=== PATIENT | female | born 1990 | race Caucasian/White ===

== ENCOUNTER 2022-09-28 08:33 | Outpatient (CLI) | payer MEDICAID, SELFPAY ==
--- NOTE | 2022-09-28 08:30 | RT.EKG_ITS ---
APPROVED REPORT Exam: Resting ECG Reason for Exam: Baseline ekg for monitoring - on stimulant med Patient Location: O HR:69 bpm ECG Measurements Heart Rate 69 AXIS AL 110 P 60 QRSd 83 QRS 26 QT 381 T 14 QTc 408 Conclusion Sinus rhythm...normal P axis, V-rate 50- 99 Borderline short AL interval...AL int <120mS
== END 2022-09-28 08:34 | disposition home or self-care (01) ==
LOC: DI.KIM 08:35
PROVIDERS: PCP Nurse Practitioner Family; Visit Provider Nurse Practitioner Family
DX: Z79.899 Other long term (current) drug therapy (principal); R94.31 Abnormal electrocardiogram [ECG] [EKG]
CPT/HCPCS: 93010

== ENCOUNTER 2022-10-31 14:40 | Outpatient (REF) | payer MEDICAID, SELFPAY ==
[2022-11-06 14:33] LABS: Amphetamine 1032 ng/mL (Cutoff: 25); Amphetamines Interpretation Positive.; MDA (Ecstasy Metabolite) Negative ng/mL (Cutoff: 25); MDMA (Ecstasy) Negative ng/mL (Cutoff: 25); Methamphetamine Negative ng/mL (Cutoff: 25); Phentermine Negative ng/mL (Cutoff: 25); Pseudoephedrine/Ephedrine Negative ng/mL (Cutoff: 25)
== END 2022-10-31 14:41 | disposition home or self-care (01) ==
LOC: LBN 14:40
PROVIDERS: PCP Nurse Practitioner Family; Visit Provider Nurse Practitioner Family
DX: F90.8 Attention-deficit hyperactivity disorder, other type; Z79.899 Other long term (current) drug therapy; Z51.81 Encounter for therapeutic drug level monitoring; R82.5 Elevated urine levels of drugs, medicaments and biological substances
CPT/HCPCS: 80324

== ENCOUNTER 2023-02-07 16:40 | Outpatient (REF) | payer OTHER, SELFPAY ==
[2023-02-13 07:43] LABS: Amphetamine 851 ng/mL (Cutoff: 25); Amphetamines Interpretation Positive.; MDA (Ecstasy Metabolite) Negative ng/mL (Cutoff: 25); MDMA (Ecstasy) Negative ng/mL (Cutoff: 25); Methamphetamine Negative ng/mL (Cutoff: 25); Phentermine Negative ng/mL (Cutoff: 25); Pseudoephedrine/Ephedrine Negative ng/mL (Cutoff: 25)
== END 2023-02-07 16:41 | disposition home or self-care (01) ==
LOC: LBO 16:40
PROVIDERS: PCP Nurse Practitioner Family; Visit Provider Nurse Practitioner Family
DX: F41.8 Other specified anxiety disorders (principal); Z79.899 Other long term (current) drug therapy; Z51.81 Encounter for therapeutic drug level monitoring; F90.8 Attention-deficit hyperactivity disorder, other type
CPT/HCPCS: 80324

== ENCOUNTER 2024-04-15 03:21 | Outpatient (CLI) | payer BC, SELFPAY ==
[2024-04-15 11:03] LABS: Calculated LDL 74 mg/dL (<100); Cholesterol 158 mg/dL (<200); HDL Cholesterol 78 mg/dL (40-60); Triglyceride 31 mg/dL (<150)
[2024-04-16 09:47] LABS: Varicella IgG Antibody Positive (See Note)
[2024-04-17 14:23] LABS: TB Interpretation Negative (Negative)
== END 2024-04-15 03:22 | disposition home or self-care (01) ==
LOC: LBO 03:21
PROVIDERS: Nurse Practitioner Family; PCP Nurse Practitioner; Visit Provider Nurse Practitioner
DX: Z02.1 Encounter for pre-employment examination (principal); Z13.220 Encounter for screening for lipoid disorders
CPT/HCPCS: 36415; 80061; 86787; 86480

== ENCOUNTER 2024-06-22 01:52 | Outpatient (CLI) | payer OTHER, SELFPAY ==
--- NOTE | 2024-06-22 06:45 | DI.MAMMO_ITS ---
Exam(s) MAMMO SCREENING EXAM: MAMMO SCREENING CLINICAL HISTORY: screening,MOM WITH BREAST CA,Z12.39,Z80.3. TECHNIQUE: Bilateral full field digital CC and MLO mammographic images were obtained with 3D tomosyn thesis and utilizing computer aided detection (CAD). COMPARISON: None. This is a baseline mammogram on this 34 old patient 2 has significant family hist ory. Apparently both her mother and grandmother had breast cancer FINDINGS: Fibroglandular tissue is moderately dense, this somewhat decreasing the sensitivity of the mammogram for finding hidden underlying lesions. There are no obvious spiculated masses nor malignant appearing microcalcification groups. There is no significant architectural distortion nor skin thickening-retraction. IMPRESSION: Dense bilateral fibroglandular tissue. No obvious radiographic evidence of malignancy. Given the density of this patient's fibroglandular tissue and significant family history I feel would be prudent to perform complete bilateral screening breast ultrasound. BI-RADS Category 0 - Incomplete: Need additional imaging evaluation Breast Density - Category C - Heterogeneously dense Breast density Category C or D implies that the patient has dense breast tissue. Dense breast tissue can make it harder to find cancer on a mammogram. Dense breast tissue is also associated with an incr eased risk of breast cancer. This information about the result of the mammogram report was provided to the patient to raise their awareness. Use this report when you speak with the patient about their risks for breast cancer, which includes their family history. At that time, you may recommend additional screening tests (Ultrasoun d or MRI) as these tests may add significant information. A negative radiographic report should not delay biopsy if a dominant or clinically suspicious mass is present. Up to ten percent of cancers are not identified on mammography. A negative report may reinforce clinical impression. Adenosis and dense breasts may obscure an underlying neoplasm. False positive reports average 6 to 10%. Patient will receive a letter notifying them of these results.
== END 2024-06-22 02:12 ==
PROVIDERS: PCP Nurse Practitioner; Visit Provider Nurse Practitioner
DX: Z12.31 Encounter for screening mammogram for malignant neoplasm of breast (principal); Z80.3 Family history of malignant neoplasm of breast; R92.333 Mammographic heterogeneous density, bilateral breasts
CPT/HCPCS: 77063; 77067

== ENCOUNTER 2024-07-21 18:13 | Emergency (ER) | payer OTHER, SELFPAY ==
[2024-07-21 18:17] VITALS: BP 130/67; PULSE 78; RESP 16; TEMP 36.6; O2SAT 98
--- OUTSIDE RECORDS SUMMARY | 2024-07-21 18:38 | XMS_ITS | Encounter Summary ---
Author Organization [facility] Address [facility] [address] [address] Care Team Providers Care Grain Shipper Name Role Phone Bere Ramos APRN Primary Care Provider [phone] Reason for Visit * Consultation (Routine) - Closed Specialty Diagnoses / Procedures Referred By Antonio t Referred To Contact Rheumatology Diagnoses Undifferentiated connective tissue disease Ting Hoyos APRN [address] [place] [address] [facility] [place], [place] Rheumatology [address] [place] [phone] Referral ID Status Reason Start Date Expiration Date V isits Requested Visits Authorized [id number] Closed Consult, Test & Treat PCP Updated and/or Approved 05/24/2023 05/23/2024 6 6 Encounter Details Date Type Department Care Team (Late st Contact Info) Description 07/03/2023 9:00 AM EST TH Visit (TeleHealth) [place] [phone] Zay Quintero MD [facility] [place] [address] Undifferentiated connective tissue disease; Anxiety and depression; Traumatic brain injury, with unknown loss of consciousness status, initial encounter; ADHD (attention deficit hyperactivity disorder), combined type; Hypermobility syndrome Social History Tobacco Use Types Packs/Day Years Used Date Smoking Tobacco: Never Assessed Sex and Gender Information Value Date Recorded Sex Assigned at Not on file Gender Identity Not on file Sexual Orientation Not on file documented as of this encounter Progress Notes * Zay Quintero MD - 07/03/2023 9:00 AM EST Images from the original note were not included. Rheumatology Clinic: Dr. Quintero 07/03/2023 [id number] Katja Pineda is a 33 y.o. female patient whom we see in consultation for Bere Ramos APRN in evaluation of undifferentiated connective tissue disease. Unfortunately, she has an extensive medical history, mainly at the [facility], but also more recently with rheumatology in [place], [place]. We don't have access to those records and will need to track them down. (Some information was subsequently sent by the patient through the portal; see below.) Apparently this is a recurring problem, i.e., getting her old medical records forwarded to her new providers. So, this note is based solely upon the interview with family today. She recalls having autoimmune problemsfrom a young age. Even before that, she had problems with delayed growth. Some of that she relates to black mold that was present in her grammar school, so called sick school syndrome. In any case,she ultimately began catching up, but developed problems in the seventh grade when she was 13 to 14years old. She had Raynaud's, heartburn, and profound fatigue. She says at one point in time, the co nsideration was between inflammatory bowel disease versus lupus, which would be unusual differential diagnosis. In any case in 2013, she had upper and lower endoscopy. She says there were small ulcers identified in her GI tract. She can't be more specific than that, she was put on omeprazole which was very helpful, suggesting that possibly these were upper GI ulcers. She continues to use that on a as-needed basis for ulcer pain, which she relates to stress and consists of burning, epigastric pain and some reflux symptoms. Importantly, she was never specifically treated for IBD, and in fact cannot recall ever receiving steroids. In the last 5-6 years, she developed chilbains after her second with her daughter in 2017-. This is after having Raynauds most of her life, involving both fingers and toes. She also has chronic widespread body aches, most of that more localized to the joints than muscles, although she has both. She has been diagnosed with EDS-hypermobility type, which certainly contributes to her joint pain. We then went into her history. She first became with her son at age 21 inaround 2011. That delivery went okay. With her daughter in 2019, she developed gestational diabetes, and also had a flare of her connective tissue disease with a difficult rash on face, arms, and legs associated with swelling. She has a picture of that rash (See below.). She had a skin biopsy that was inconclusive. She had significant pain from her ribs down, into her bottom and then her legs, anyplace that got cold. Then after that she developed severe chilblains. She has never hada miscarriage. She went on BCPs at age 18, and that caused the skin on her legs to become bruised and very itchy. So she stopped the BCP and the bruising resolved. After her son was born when she was22, she was put on a different type of BCP, but that caused moodiness. . At the time, she was put on it for severe periods and recurrent symptomatic ovarian cysts. In terms of current control, she is not on anything. Unfortunately, her is allergic to latex, so they cannot even use condoms. So they end up just being very careful about her cycles. On connective tissue disease review of systems, in addition to the Raynaud's and possibly CTD-related skin rashes, she has profound fatigue, musculoskeletal pain all over, but particularly in her shoulders including the hands, shoulder blades, lower back, hips, and feet. Her shoulders are unstable and frequently pop out and become very painful. In fact, she always has pain in her hands, shoulders, and feet. When she flares all of her joints hurt and those particular joints get worse. She alsohas baseline hair loss, oral ulcers, and a tender scalp, plus minus rash. During a flare, she also has intermittent fevers that can last just 4 hours. Her baseline fatigue gets dramatically worse. She has trouble getting out of bed because she feels like concrete, which sounds like a mixture of stiffness, musculoskeletal pain, and (difficulty responding to her brain) telling her to move. She notes that stress is an important trigger. She has worked on her mental health to try and reduce her stress, and therefore her flares, and has had some success in that regard. She has some issues with an xiety and depression and a history of TBI, as well as ADHD that was diagnosed at age 29. Her fatigue has been bad lately, probably related to the fact that she is working 50-70 hrs a week, going to school for an advanced degree, and raising two children. Treatment-cohen, as noted, she was followed by rheumatology in [place] for many years. She was onhydroxychloroquine, okay to stay but stopped that on her own when the COVID-19 pandemic developed because she was concerned that it might be immunosuppressive. The family then moved north to [place], initially at [facility] off of [facility] in [place]. She began seeing a c software developer in [place] 2 years ago. He put her on amlodipine for her Raynaud's and chilblains, and eventually increased that up to 10 mg a day, on which she remains. They were contemplating starting her back on h ydroxychloroquine, but the family had to move. With the pandemic and [facility] [place] [facility] [place] They've moved a total of seven times in 2 years, all related to trying to find affordable housing. In any case, because of the movements, she was unable to then follow-up with the c software developer in [place]. The people at her current work are very understanding and accommodating. In fact, she did this telehealth visit from work. Her helps out a lot. A best friend from [place] has moved nearby and helps as well. Surprisingly, she has never been on prednisone. She notes that there has been an increase in flares this year. Past Medical History: Undifferentiated connective tissue disease. Raynaud's and chilblains. History of multiple rashes. Traumatic brain injury. ADHD diagnosed at age 29. Anxiety/depression. History of gestational diabetes. Family History: Her mom had a history of mixed connective tissue disease and was on prednisone at one time for that. Her mother ultimately from triple negative breast cancer at age 52. Her daughter has what she believes may be Raynaud's. She is trying to emphasize commonsense approachesto that rather than getting her daughter involved in the healthcare system so young in life. 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 She, her , and her two children live and workin [place]. She is also taking online courses in Interdiscplinary Studies through the [employer]. This focuses on child psychology, education, and development. Ultimately, she wants to do child social work. 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 Her children are now 4 and 10 years old. Her works in restaurant management and is very supportive and helpful with her problems. It sounds like there finances can sometimes be challenging. Review of Systems As in HPI. Otherwise, no history of deep venous thrombosis, miscarriages, kidney disease, hematologic problems, BODY AND FENDER WORKER disease other than the TBI. She is not really familiar with her serology workups. Otherwise, the rheumatology, cardiology, pulmonary, GI, , neurology, dermatology, and hematology review of systems is negative or non-contributory. Physical Exam: She is a very healthy-appearing young woman on the video connection. She is in good spirits. Her medical history is complex and includes a lot of information from when she was a child and therefore her recollection of the details is marginal. After the visit she sent the following pictures, undated, which appear to show a malar rash, chilblains with some skin breakdown, an erythemamultiforme rash of the palms, and an unusual thigh rash which was apparently biopsied on 08/12/2018 with non-specific findings and no evidence of LCV or IFD or dermal mucin deposits. Assessment & Plan: We had a long discussion about her situation. The bottom line though is we need much more information about her connective tissue disease history and we will track that down from her providers at [facility] and [place]. She'll continue the amlodipine. My initial inclination is to put her on hydroxychloroquine, but before doing that would like to get more of her rheumatologic history and also a fresh set of labs. Her primary intended for her to have blood work already, but it is fortunate in a way that she hasn't because she says she is a very difficult stick. We'll mail her lab slips and she can have all her labs done in [place] with hopefully just one stick. I asked herto send a message through the portal after she has them done, so we can review the results and decide what to do next. In the meantime, we'll plan on seeing her in follow-up in 3 months, either via TeleHealth or preferably in person here in the clinic. Visit Diagnoses: 1. Undifferentiated connective tissue disease 2. Anxiety and depression 3. Traumatic brain injury, with unknown loss of consciousness status, initial encounter 4. ADHD (attention deficit hyperactivity disorder), combined type 5. Hypermobility syndrome Notes from , previously at [facility], now located in [place]: Notes from Dr. Nils Dodson MD in [place], [place] from 08/11/2021: documented in this encounter Plan of Treatment Scheduled Orders Name Type Priority Associated Diagnoses Orde r Schedule JEANIE Panel Lab Routine Undifferentiated connective tissue disease Expected: 07/03/2023, Expires: 07/02/2024 documented as of this encounter Results * Protein/Creatinine Ratio, urine (09/27/2023 4:35 PM EDT) Creatinine, Urine 90.8 EXTERNAL [facility]ILITY Protein, Urine Dipstick 101 [facility] Protein / Creatinine Ratio, Urine 1.11 [facility]ILITY Urine 09/27/2023 4:35 PM EDT Zay Quintero MD URINE ORDERABLES EXTERNAL FACILITY * (ABNORMAL) Urinalysis with reflex Culture (09/27/2023 4:35 PM EDT) Color, Urine Dipstick Yellow [facility] Appearance, Urine Dipstick Clear [facility]ACILITY Specific [place] Urine Automated 1.025 EX[facility]ACILITY pH, Urn (dipstick) 6.5 [facility]ACILITY Protein, Urine Dipstick 100(H) EX[facility]ACILITY Glucose, Urine Dipstick Negative [facility]ILITY Ketone, Urine Dipstick 40(H) EX[facility]NAL [facility]ACILITY Bilirubin, Urine Dipstick Negative [facility]ILITY Urobilinogen, Urine Dipstick 0.2 [facility]ACILITY Blood, Urine Dipstick Negative [facility]ILITY Leukocytes, Urine Dipstick Negative [facility]ILITY Nitrite, Urine Dipstick Negative [facility]ILITY WBC, Urine 5-10(H) [facility]ILITY RBC, Urine 0-3 [facility]ILITY Bacteria, Urine 2+(H) EXTERNAL [facility]ACILITY Culture Indicated? Yes(H) EXTERNAL FACILITY 09/27/2023 4:35 PM EDT Zay Quintero MD URINE ORDERABLES EXTERNAL FACILITY * Cardiolipin Antibody Screen (09/27/2023 4:21 PM EDT) Label <9 EXTERNAL FACILITY Comment:Cardiolipin IGA Cardiolipin Antibody IgG <9 [facility]TERNAL FACILITY Cardiolipin Antibody IgM <9 [facility]ILITY Blood 09/27/2023 4:21 PM EDT Zay Quintero MD IMMUNOLOGY ORDERA BLES EXTERNAL FACILITY * C4 Complement (09/27/2023 4:21 PM EDT) Complement C4 30 [facility] Blood 09/27/2023 4:21 PM EDT Zay Quintero MD CHEMISTRY ORDERAB LES EXTERNAL FACILITY * C3 Complement (09/27/2023 4:21 PM EDT) Complement C3 125 [facility] Blood 09/27/2023 4:21 PM EDT Zay Quintero MD CHEMISTRY ORDERAB LES EXTERNAL FACILITY * SHELLEY Ab by IFA (09/27/2023 4:21 PM EDT) SHELLEY Negative EXTERNAL FACILITY Blood 09/27/2023 4:21 PM EDT Zay Quintero MD CHEMISTRY ORDERAB LES EXTERNAL FACILITY * Sedimentation rate (09/27/2023 4:21 PM EDT) Sedimentation Rate Automated 7 [facility]TER[facility] FACILITY Blood 09/27/2023 4:21 PM EDT Zay Quintero MD HEMATOLOGY ORDERA BLES Performing Organization Address [facility] Co de Phone Number EXTERNAL FACILITY * (ABNORMAL) CRP, acute inflammation (09/27/2023 4:21 PM EDT) C-Reactive Protein <0.20(L) EXTERNAL FACILITY Blood 09/27/2023 4:21 PM EDT Zay Quintero MD CHEMISTRY ORDERAB LES Performing Organization Address [facility] de Phone Number EXTERNAL FACILITY * (ABNORMAL) Comprehensive metabolic panel (non-fasting) (09/27/2023 4:21 PM EDT) Glucose 126(H) EXTERNAL FACILITY Blood Urea Nitrogen 14 EX[facility]ACILITY Creatinine 0.73 [facility]ACILITY Est Glomerular Filtration Rate 112 EX[facility]ACILITY Sodium 134(L) EXTERNAL FACILITY Potassium 3.6 EXTER[facility] FACILITY Chloride 99 EX[facility] FACILITY Carbon Dioxide 25 EXTER NAL FACILITY Calcium 9.2 EXTERNAL FACILITY Protein, Total 8.3 EXTER NAL FACILITY Albumin 4.9 EXTERNAL FACILITY Bilirubin, Total 0.6 [facility]T [facility] Alkaline Phosphatase 44 [facility]ACILITY Aspartate Aminotransferase 17 [facility]ACILITY Alanine Aminotransferase 15 [facility]ILITY Anion Gap 14 EXTERNAL FACILITY Blood 09/27/2023 4:21 PM EDT Zay Quintero MD CHEMISTRY ORDERAB LES Performing Organization Address [facility] Co de Phone Number EXTERNAL FACILITY * CBC (with Diff) (09/27/2023 4:21 PM EDT) White Blood Cell 6.22 [facility] Red Blood Cell 4.94 EXTER NAL FACILITY Hemoglobin 14.2 EXTERNAL FACILITY Hematocrit 42.2 [facility]NAL [facility]ACILITY Mean Cell Volume 85.4 [facility] Mean Cell Hemoglobin 28.7 EX[facility]ACILITY Mean Cell Hemoglobin Concentration 33.6 EXTERNAL FACILITY RDW coefficient of variation 13.2 EX[facility]ACILITY Platelet 389 [facility] Mean Platelet Volume 9.5 [facility]ACILITY Neutrophil % 76.5 EXTERNA L FACILITY Lymph % 16.9 [facility]ACILITY Monocyte % 5.5 EXTERNAL FACILITY Eosinophil Manual 0.3 EX TERNAL FACILITY Basophil % 0.6 EXTERNAL FACILITY Immature Gran % 0.2 EXTE [facility]ACILITY Neutrophil Absolute (ANC) - Automated 4.76 EXTERNAL FACILITY Lymph Absolute Manual 1.05 EXTERNAL FACILITY Monocyte Abs 0.34 EXTERNA L FACILITY Eos Absolute Manual 0.02 EXTERNAL FACILITY Baso Absolute Manual 0.04 EXTERNAL FACILITY Immature Gran Absolute 0.01 EXTERNAL FACILITY Blood 09/27/2023 4:21 PM EDT Zay Quintero MD HEMATOLOGY ORDERA BLES EXTERNAL FACILITY documented in this encounter Visit Diagnoses Diagnosis Undifferentiated connective tissue disease Unspecified diffuse connective tissue disease Anxiety and depression Dysthymic disorder Traumatic brain injury, with unknown loss of consciousness status, initial encounter ADHD (attention deficit hyperactivity disorder), combined type Attention deficit disorder with hyperactivity Hypermobility syndrome documented in this encounter Care Teams Grain Shipper Relationship Specialty Start Date End Date Bere Ramos APRN [address] [place] [phone] PCP - General Family Medicine 05/24/23 documented as of this encounter
--- OUTSIDE RECORDS SUMMARY | 2024-07-21 18:38 | XMS_ITS | Encounter Summary ---
Author Organization [facility] Address [address] [place] [address] Care Team Providers Care Professor Of History Name Role Phone Unavailable Primary Care Provider Unavailabl e Reason for Referral * (Routine/Next Available) - Receiving Office to Obtain Authorization Specialty Diagnoses / Procedures Referred By Antonio t Referred To Contact Procedures MA OUTSIDE IMAGES MAMMO SCREENING Imaging, External Referral ID Status Reason Start Date Expiration Date Visits Requested Visits Authorized [id number] Receiving Office to Obtain Authorization 07/17/2024 1 1 Reason for Visit * (Routine/Next Available) - Receiving Office to Obtain Authorization Specialty Diagnoses / Procedures Referred By Antonio thompson Referred To Contact Procedures MA OUTSIDE IMAGES MAMMO SCREENING Imaging, External Referral ID Status Reason Start Date Expiration Date Visits Requested Visits Authorized [id number] Receiving Office to Obtain Authorization 07/17/2024 1 1 Encounter Details Date Type Department Care Team (Latest Contact Info) Description 06/22/2024 - 06/22/2024 23:59 EST Hospital Encounter [facility] Secondary Reads [place] Discharge Disposition: Home or Self Care Social History Tobacco Use Types Packs/Day Years Used Date Smoking Tobacco: Never Assessed Comments Unknown Sex and Gender Information Value Date Recorded Sex Assigned at Not on file Legal Sex Female 13:02 EDT Gender Identity Not on file Sexual Orientation Not on file documented as of this encounter Discharge Disposition Disposition Code Departure Means Destination Home or Self Care documented in this encounter Plan of Treatment Not on file documented as of this encounter Procedures Procedure Name Priority Date/Time Associated Diagnosis Comments MA OUTSIDE IMAGES MAMMO SCREENING Routine 06/22/2024 10:43 EST documented in this encounter Results * MA OUTSIDE IMAGES MAMMO SCREENING (06/22/2024 10:43 EST) Narrative 07/17/2024 10:44 EST This is a non-reportable exam. us External Imaging IMG OTHER IMAGING ORDERABLES Fi nal Result documented in this encounter Visit Diagnoses Not on filedocumented in this encounter
--- OUTSIDE RECORDS SUMMARY | 2024-07-21 18:38 | XMS_ITS | Encounter Summary ---
Author Organization [facility] Address [address] [place] [address] Care Team Providers Care Hand Stone Polisher Name Role Phone Unavailable Primary Care Provider Unavailabl e Encounter Details Date Type Department Care Team (Late st Contact Info) Description 04/16/2024 Lab Requisition [facility] Pathology & Laboratory Medicine - [facility] [address] [place] [address] Outr Resulting Lab, Provider Social History Tobacco Use Types Packs/Day Years Used Date Smoking Tobacco: Never Assessed Comments Unknown Sex and Gender Information Value Date Recorded Sex Assigned at Not on file Legal Sex Female 13:02 EDT Gender Identity Not on file Sexual Orientation Not on file documented as of this encounter Plan of Treatment Not on file documented as of this encounter Procedures Procedure Name Priority Date/Time Associated Diagnosis Comments QUANTIFERON MITOGEN (PERFORMABLE) Today 04/15/2024 10:25 EDT QUANTIFERON TB2 (PERFORMABLE) Today 04/15/2024 10:25 EDT QUANTIFERON TB1 (PERFORMABLE) Today 04/15/2024 10:25 EDT QUANTIFERON NIL (PERFORMABLE) Today 04/15/2024 10:25 EDT QUANTIFERON INTERPRETATION (PERFORMABLE) Today 04/15/2024 10:25 EDT QUANTIFERON TB GOLD PLUS Routine 04/15/2024 10:25 EDT documented in this encounter Results * QUANTIFERON INTERPRETATION (PERFORMABLE) (04/15/2024 10:25 EDT) Quantiferon Interpretation Negative Negative 04/17/2024 14:19 EDT [facility] Comment:No interferon-gamma response to M. tuberculosis antigens was detected. ??Infection with M. tuberculosis is unlikely. A single negative result does not exclude infection with M. tuberculosis. ??In patients at high risk for M. tuberculosis infection, a second test should be considered. TB1 Ag minus Nil 0.00 IU/mL 04/17/20 14:19 EDT [facility] TB2 Ag minus Nil 0.00 IU/mL 04/17/20 14:19 EDT [facility] Blood VENOUS BLOOD / Unknown 04/15/2024 10:25 EDT 04/17/2024 12:54 EDT us Provider Outr Resulting Lab IMMUNOLOGY AND SEROL OGY ORDERABLES Final Result Performing Organization Address City/[facility]/ZIP Co de Phone Number [facility] [address] [place] [phone] * QUANTIFERON MITOGEN (PERFORMABLE) (04/15/2024 10:25 EDT) Blood VENOUS BLOOD / Unknown 04/15/2024 10:25 EDT 04/16/2024 19:44 EDT us Provider Outr Resulting Lab IMMUNOLOGY AND SEROL OGY ORDERABLES Final Result Performing Organization Address City/[facility] Co de Phone Number [facility] [address] [place] [address] * QUANTIFERON TB2 (PERFORMABLE) (04/15/2024 10:25 EDT) Blood VENOUS BLOOD / Unknown 04/15/2024 10:25 EDT 04/16/2024 19:44 EDT us Provider Outr Resulting Lab IMMUNOLOGY AND SEROL OGY ORDERABLES Final Result Performing Organization Address City/[facility]/ZIP Co de Phone Number [facility] [address] [place] [address] * QUANTIFERON TB1 (PERFORMABLE) (04/15/2024 10:25 EDT) Blood VENOUS BLOOD / Unknown 04/15/2024 10:25 EDT 04/16/2024 19:44 EDT us Provider Outr Resulting Lab IMMUNOLOGY AND SEROL OGY ORDERABLES Final Result [facility] [address] [place] [address] * QUANTIFERON NIL (PERFORMABLE) (04/15/2024 10:25 EDT) Blood VENOUS BLOOD / Unknown 04/15/2024 10:25 EDT 04/16/2024 19:44 EDT us Provider Outr Resulting Lab IMMUNOLOGY AND SEROL OGY ORDERABLES Final Result [facility] [address] [place] [address] documented in this encounter Visit Diagnoses Not on filedocumented in this encounter
--- OUTSIDE RECORDS SUMMARY | 2024-07-21 18:38 | XMS_ITS | Clinical Summary ---
Author Organization [facility] [place] [address] Care Team Providers Care Financial Legal Assistant Name Role Phone Bere Ramos APRN Primary Care Provider [phone] Allergies No known active allergies Medications Medication Sig Dispensed Refills Start Date End Date Status hydrOXYzine (Atarax) 25 mg tablet Take 25 mg by mouth 3 times daily as needed for Itching. Active amLODIPine (Norvasc) 10 mg tablet Take 10 mg by mouth daily. 03/24/2024 Active dextroamphetamine-a mphetamine (Adderall XR) 15 mg ER 24 hr capsule Take 15 mg by mouth every morning. 02/25/2024 Active dextroamphetamine-a mphetamine (Adderall) 10 mg tablet Take 10 mg by mouth daily. 02/25/2024 Active escitalopram (Lexapro) 10 mg tablet Take 10 mg by mouth daily. 01/25/2024 Active celecoxib (CeleBREX) 200 mg capsuleIndications: Hypermobility syndrome,Undifferen tiated connective tissue disease Take 1 capsule by mouth daily. 90 capsule 3 03/25/2024 Active predniSONE (Deltasone) 5 mg tablet Do prednisone (32 tablets of 5 mg each) taper as follows: 4 tabs po x 3 days, 3 tabs po x 3 days, 2 tabs po x 3 days, 1 tab po x 3 days, 1/2 tab po x 4 days, then stop. 32 tablet 1 05/24/2024 Active Active Problems Problem Noted Date Diagnosed Date Undifferentiated connective tissue disease 07/04 TBI (traumatic brain injury) 07/04/2023 Hypermobility syndrome 07/04/2023 ADHD (attention deficit hype ractivity disorder), combined type 07/04/2023 Encounters Date Type Department Care Team Description 05/24/2024 Orders [place] [address] Zay Quintero MD from Last 3 Months Social History Tobacco Use Types Packs/Day Years Used Date Smoking Tobacco: Former Cigarettes Smokeless Tobacco: Never Tobacco Cessation:Counseling Given: Not Answered Sex and Gender Information Value Date Recorded Sex Assigned at Not on file Gender Identity Not on file Sexual Orientation Not on file Last Filed Vital Signs Vital Sign Reading Time Taken Comments Blood Pressure 127/81 03/25/2024 11:02 AM EDT Pulse 77 03/25/2024 11:02 AM EDT Temperature 36.4 ??C (97.5 ??F) 03/25/2024 11:02 AM E DT Respiratory Rate 18 03/25/2024 11:02 AM EDT Oxygen Saturation 100% 03/25/2024 11:02 AM EDT Inhaled Oxygen Concentration - - Weight 55.3 kg (122 lb) 03/25/2024 11:02 AM EDT Height 159.4 cm (5' 2.75) 03/25/2024 11:02 AM E DT Body Mass Index 21.78 03/25/2024 11:02 AM EDT Plan of Treatment Health Maintenance Due Date Last Done Comments HIV screen 2009 Hepatitis C Screening 2009 Hepatitis B vaccine (0-59 yrs) (1) 2010 Tetanus/Diphtheria/Pertussis Vaccines (1 - Tdap) 02/18 HPV test 2021 PAP Smear 2021 Covid-19 Vaccine (1 - season) 2024 Influenza (Flu) vaccine (1 o f 1 - Influenza standard series) 02/23/2024 Care Teams Financial Legal Assistant Relationship Specialty Start Date End Date Bere Ramos, TERRITORY SALES PROFESSIONAL [address] [place] [address] [address] [place] [phone] PCP - General Family Medicine 05/24/23
--- OUTSIDE RECORDS SUMMARY | 2024-07-21 18:38 | XMS_ITS | Encounter Summary ---
Author Organization [facility] Address [facility] [place] [address] Care Team Providers Care Blasting Machine Operator Name Role Phone Richard Bere Gan APRN Primary Care Provider [phone] Encounter Details Date Type Department Care Team (Late st Contact Info) Description 07/03/2023 Telephone [place] [phone] Aimee Walton RN Social History Tobacco Use Types Packs/Day Years Used Date Smoking Tobacco: Never Assessed Sex and Gender Information Value Date Recorded Sex Assigned at Not on file Gender Identity Not on file Sexual Orientation Not on file documented as of this encounter Miscellaneous Notes * Telephone Encounter - Aimee Walton RN - 07/03/2023 12:38 PM EST Copied from [facility] #[id number]. Topic: Specialty Dept CRMs - Generic Call >> Jul 03, 2023 10:41 AM Keerthi Martinez wrote: SelfSpecialist: Ingrid Relationship (if other than patient-full name): Self Reason for Call: Patient was advised to upload picture via [facility] to Dr. Quintero, however they do not have the [facility] to send a message at this time. Patient asked if Dr. Myers or a clinical staff member could send her message first so patient could replay with the photos requested. ++++++++++++++++++++++++++++++++++++++++++++++++++++++++++++++++++++++++++++++++ ++++++++++++++++++++ I have sent Katja a message. documented in this encounter Plan of Treatment Not on file documented as of this encounter Visit Diagnoses Not on filedocumented in this encounter Care Teams Blasting Machine Operator Relationship Specialty Start Date End Date Bere Ramos APRN [address] [place] [phone] PCP - General Family Medicine 05/24/23 documented as of this encounter
--- OUTSIDE RECORDS SUMMARY | 2024-07-21 18:38 | XMS_ITS | Encounter Summary ---
Author Organization [facility] [place] [address] Care Team Providers Care Engine Specialist Name Role Phone Bere Ramos APRN Primary Care Provider [phone] Encounter Details Date Type Department Care Team (Latest Contact Info) Description 10/24/2023 External Results [facility] [address] [place] [address] Provider, His Sukumar MD None Undifferentiated connective tissue disease Social History Tobacco Use Types Packs/Day Years Used Date Smoking Tobacco: Never Assessed Sex and Gender Information Value Date Recorded Sex Assigned at Not on file Gender Identity Not on file Sexual Orientation Not on file documented as of this encounter Plan of Treatment Not on file documented as of this encounter Procedures Procedure Name Priority Date/Time Associated Diagnosis Comments PROTEIN/CREATININE RATIO, URINE Routine 09/27/2023 4:35 PM EDT Undifferentiated connective tissue disease URINALYSIS WITH REFLEX CULTURE Routine 09/27/2023 4:35 PM EDT Undifferentiated connective tissue disease SHELLEY AB BY IFA Routine 09/27/2023 4:21 PM EDT Undifferentiated connective tissue disease MISC EXTERNAL LAB PANEL Routine 09/27/2023 4:21 PM EDT CRP, ACUTE INFLAMMATION Routine 09/27/2023 4:21 PM EDT Undifferentiated connective tissue disease DNA ANTIBODY (DOUBLE-STRANDED) Routine 09/27/2023 4:21 PM EDT SM (JAVIER) AB Routine 09/27/2023 4:21 PM EDT CARDIOLIPIN ANTIBODY SCREEN Routine 09/27/2023 4:21 PM EDT Undifferentiated connective tissue disease SEDIMENTATION RATE Routine 09/27/2023 4: 21 PM EDT Undifferentiated connective tissue disease CBC (WITH DIFF) Routine 09/27/2023 4:21 PM EDT Undifferentiated connective tissue disease C3 COMPLEMENT Routine 09/27/2023 4:21 PM EDT Undifferentiated connective tissue disease C4 COMPLEMENT Routine 09/27/2023 4:21 PM EDT Undifferentiated connective tissue disease COMPREHENSIVE METABOLIC PANEL Routine 09/27/2023 4:21 PM EDT Undifferentiated connective tissue disease URINE CULTURE Routine 09/27/2023 documented in this encounter Results * Protein/Creatinine Ratio, urine [...] Appearance, Urine Dipstick Clear EXTERNAL FACILITY Specific [place] Urine Automated 1.025 EXTERNAL FACILITY pH, Urn [...] PM EDT Zay Quintero MD URINE ORDERABLES Performing Organization Address [facility] Co de Phone Number EXTERNAL FACILITY * Misc External Lab Panel (09/27/2023 4:21 PM EDT) Label <0.2 EXTERNAL FACILITY Comment:DENTURE LABORATORY TECHNICIAN Antibodies 09/27/2023 4:21 PM EDT Zay Quintero MD POINT OF CARE CHELLY T ORDERABLES Performing Organization Address [facility] Co de Phone Number EXTERNAL FACILITY * SM (Javier) AB (09/27/2023 4:21 PM EDT) Sm (Javier) Ab <0.2 GOURMET COFFEE ATTENDANT AL FACILITY Blood 09/27/2023 4:21 PM EDT Zay Quintero MD LAB SEND OUT ORDE RABLES Performing Organization Address [facility] Co de Phone Number EXTERNAL FACILITY * DNA Antibody (Double-Stranded) (09/27/2023 4:21 PM EDT) DNA Ab (DS) 1 EXTERNAL FACILITY Blood 09/27/2023 4:21 PM EDT Zay Quintero MD LAB SEND OUT ORDE RABLES Performing Organization Address [facility] Co de Phone Number EXTERNAL FACILITY * SHELLEY Ab by IFA (09/27/2023 4:21 PM EDT) SHELLEY Negative EXTERNAL FACILITY Blood 09/27/2023 4:21 PM EDT Zay Quintero MD CHEMISTRY ORDERAB LES Performing Organization Address [facility]/ZIP Co de Phone Number EXTERNAL FACILITY * Sedimentation rate (09/27/2023 4:21 PM EDT) Sedimentation Rate Automated 7 EXTERNAL FACILITY Blood 09/27/2023 4:21 PM EDT Zay Quintero MD HEMATOLOGY ORDERA BLES Performing Organization Address [facility] Co de Phone Number EXTERNAL FACILITY * Cardiolipin Antibody Screen (09/27/2023 4:21 PM EDT) Label <9 EXTERNAL FACILITY Comment:Cardiolipin IGA Cardiolipin Antibody IgG <9 EXTERNAL FACILITY Cardiolipin Antibody IgM <9 EXTERNAL FACILITY Blood 09/27/2023 4:21 PM EDT Zay Quintero MD IMMUNOLOGY ORDERA BLES Performing Organization Address [facility] Co de Phone Number EXTERNAL FACILITY * C4 Complement (09/27/2023 4:21 PM EDT) Complement C4 30 GOURMET COFFEE ATTENDANT AL FACILITY Blood 09/27/2023 4:21 PM EDT Zay Quintero MD CHEMISTRY ORDERAB LES Performing Organization Address [facility] Co de Phone Number EXTERNAL FACILITY * C3 Complement (09/27/2023 4:21 PM EDT) Complement C3 125 GOURMET COFFEE ATTENDANT AL FACILITY Blood 09/27/2023 4:21 PM EDT Zay Quintero MD CHEMISTRY ORDERAB LES Performing Organization Address [facility] Co de Phone Number EXTERNAL FACILITY * (ABNORMAL) CRP, acute inflammation (09/27/2023 4:21 PM EDT) C-Reactive Protein <0.20(L) EXTERNAL FACILITY Blood 09/27/2023 4:21 PM EDT Zay Quintero MD CHEMISTRY ORDERAB LES EXTERNAL FACILITY * (ABNORMAL) Comprehensive metabolic panel [...] 4.9 EXTERNAL FACILITY Bilirubin, Total 0.6 [facility] Alkaline Phosphatase 44 EXTERNAL FACILITY Aspartate Aminotransferase 17 EXTERNAL FACILITY Alanine Aminotransferase 15 EXTERNAL FACILITY Anion Gap 14 EXTERNAL FACILITY Blood 09/27/2023 4:21 PM EDT Zay Quintero MD CHEMISTRY ORDERAB LES Performing Organization Address City/[facility] Co de Phone Number EXTERNAL FACILITY * [...] Quintero MD HEMATOLOGY ORDERA BLES EXTERNAL FACILITY * Urine culture (09/27/2023) Urine Culture Mixed Growth. Suggestive of contamination. EXTERNAL FACILITY 09/27/2023 Zay Quintero MD MICROBIOLOGY - GE NERAL ORDERABLES EXTERNAL FACILITY documented in this encounter Visit Diagnoses Diagnosis Undifferentiated connective tissue disease Unspecified diffuse connective tissue disease documented in this encounter Care Teams Engine Specialist Relationship Specialty Start Date End Date Bere Ramos, CNC MAINTENANCE TECHNICIAN [address] [place] [address] [phone] PCP - General Family Medicine 05/24/23 documented as of this encounter
--- OUTSIDE RECORDS SUMMARY | 2024-07-21 18:38 | XMS_ITS | Encounter Summary ---
Author Organization [facility] Address [facility] [address] [place] [address] Care Team Providers Care Rehab Manager Name Role Phone Bere Ramos APRN Primary Care Provider [phone] Encounter Details Date Type Department Care Team (Late st Contact Info) Description 05/24/2024 Orders [place] [address] Zay Quintero MD [facility] [place] [address] Social History Tobacco Use Types Packs/Day Years Used Date Smoking Tobacco: Former Cigarettes Smokeless Tobacco: Never Sex and Gender Information Value Date Recorded Sex Assigned at Not on file Gender Identity Not on file Sexual Orientation Not on file documented as of this encounter Plan of Treatment Not on file documented as of this encounter Visit Diagnoses Not on filedocumented in this encounter Care Teams Rehab Manager Relationship Specialty Start Date End Date Bere Ramos APRN [address] [place] [phone] PCP - General Family Medicine 05/24/23 documented as of this encounter
--- OUTSIDE RECORDS SUMMARY | 2024-07-21 18:38 | XMS_ITS | Referral Summary ---
Author Organization [facility] Address [address] [place] [address] Care Team Providers Care Betting Agency Manager Name Role Phone Unavailable Primary Care Provider Unavailabl e Encounters Date Type Department Care Team Description 06/22/2024 - 06/22/2024 23:59 EST Hospital Encounter [facility] [place] Discharge Disposition: Home or Self Care from Last 3 Months Social History Tobacco Use Types Packs/Day Years Used Date Smoking Tobacco: Never Assessed Comments Unknown Sex and Gender Information Value Date Recorded Sex Assigned at Not on file Legal Sex Female 13:02 EDT Gender Identity Not on file Sexual Orientation Not on file Plan of Treatment Not on file Procedures Procedure Name Priority Date/Time Associated Diagnosis Comments MA OUTSIDE IMAGES MAMMO SCREENING Routine 06/22/2024 10:43 EST from Last 3 Months Results * MA OUTSIDE IMAGES MAMMO SCREENING (06/22/2024 10:43 EST) Narrative 07/17/2024 10:44 EST This is a non-reportable exam. us External Imaging IMG OTHER IMAGING ORDERABLES Fi nal Result from Last 3 Months
--- OUTSIDE RECORDS SUMMARY | 2024-07-21 18:38 | XMS_ITS | Clinical Summary ---
Author Organization [facility] Address [address] [place] [address] Care Team Providers Care Terrazzo Worker Apprentice Name Role Phone Unavailable Primary Care Provider Unavailabl e Encounters Date Type Department Care Team Description 06/22/2024 - 06/22/2024 23:59 EST Hospital Encounter [facility] [place] Discharge Disposition: Home or Self Care from Last 3 Months Social History Tobacco Use Types Packs/Day Years Used Date Smoking Tobacco: Never Assessed Comments Unknown Sex and Gender Information Value Date Recorded Sex Assigned at Not on file Legal Sex Female 13:02 EDT Gender Identity Not on file Sexual Orientation Not on file Plan of Treatment Health Maintenance Due Date Last Done Comments Hepatitis C Screen 1991 Hepatitis B Vaccine (1 of 3 - 19+ 3-dose series) 02/18 COVID-19 Vaccine ( season) 2024 Procedures Procedure Name Priority Date/Time Associated Diagnosis Comments MA OUTSIDE IMAGES MAMMO SCREENING Routine 06/22/2024 10:43 EST from Last 3 Months Results * MA OUTSIDE IMAGES MAMMO SCREENING (06/22/2024 10:43 EST) Narrative 07/17/2024 10:44 EST This is a non-reportable exam. us External Imaging IMG OTHER IMAGING ORDERABLES Fi nal Result from Last 3 Months
--- OUTSIDE RECORDS SUMMARY | 2024-07-21 18:38 | XMS_ITS | Encounter Summary ---
Author Organization [facility] [place] [address] Care Team Providers Care Civil Service Worker Name Role Phone Bere Ramos APRN Primary Care Provider [phone] Reason for Visit * Reason Onset Date Comments Prior Authorization 03/27/2024 Encounter Details Date Type Department Care Team (Late st Contact Info) Description 03/27/2024 Telephone [place] [phone] Mary Jo Alejandra Prior Authorization Social History Tobacco Use Types Packs/Day Years Used Date Smoking Tobacco: Former Cigarettes Smokeless Tobacco: Never Sex and Gender Information Value Date Recorded Sex Assigned at Not on file Gender Identity Not on file Sexual Orientation Not on file documented as of this encounter Miscellaneous Notes * Telephone Encounter - Mary Jo Alejandra - 04/02/2024 11:17 AM EDT PA Outcome: PA Approval Medication Prior Authorization Approval Approved: Celecoxib 200mg Start Date: 04/02/24 End Date: 04/02/25 Case/Reference #: [id number] Approval Letter will be scanned into media once received. * Telephone Encounter - Mary Jo Alejandra - 04/02/2024 10:21 AM EDT Images from the original note were not included. PA Outcome: PA Denial [place] [address] DENIED: Celecoxib 200mg Case/Reference #: [id number] Additional Information from Insurance: * Telephone Encounter - Mary Jo Alejandra - 03/27/2024 8:08 AM EDT Medication Prior Authorization Quintero Medication name/dose/directions: Celecoxib 200mg - take one daily Rationale for request: Hypermobility syndrome (M35.7) Undifferentiated connective tissue disease (M35.9) Health plan: [facility]) [place]: [id number] Authorizing community representative name: Anay Sent to health plan on: 03/27/24 documented in this encounter Plan of Treatment Not on file documented as of this encounter Visit Diagnoses Not on filedocumented in this encounter Care Teams Civil Service Worker Relationship Specialty Start Date End Date Bere Ramos APRN [address] [place] [phone] PCP - General Family Medicine 05/24/23 documented as of this encounter
--- OUTSIDE RECORDS SUMMARY | 2024-07-21 18:38 | XMS_ITS | Encounter Summary ---
[place] [address] Care Team Providers Care Fellmongery Worker Name Role Phone Bere Ramos APRN Primary Care Provider [phone] Reason for Referral * Consultation (Routine) - Closed Specialty Diagnoses / Procedures Referred By Antonio t Referred To Contact Rheumatology Diagnoses Undifferentiated connective tissue disease Ting Hoyos APRN [address] [place] [address] [facility] [address] [place] [phone] Referral ID Status Reason Start Date Expiration Date V isits Requested Visits Authorized [id number] Closed Consult, Test & Treat PCP Updated and/or Approved 05/24/2023 05/23/2024 6 6 Encounter Details Date Type Department Care Team (Latest Contact Info) Description 05/24/2023 Transcribe Orders eD Incoming Referrals [phone] Ting Hoyos SUPERVISOR DOG LICENSE OFFICER [address], [place] [phone] Undifferentiated connective tissue disease Social History Tobacco Use Types Packs/Day Years Used Date Smoking Tobacco: Never Assessed Sex and Gender Information Value Date Recorded Sex Assigned at Not on file Gender Identity Not on file Sexual Orientation Not on file documented as of this encounter Plan of Treatment Scheduled Referrals Name Type Priority Associated Diagnoses Order Schedule Referral to Rheumatology Outpatient Referral Routine Undifferentiated connective tissue disease Ordered: 05/24/2023 documented as of this encounter Visit Diagnoses Diagnosis Undifferentiated connective tissue disease Unspecified diffuse connective tissue disease documented in this encounter Care Teams Fellmongery Worker Relationship Specialty Start Date End Date Bere Ramos APRN [address] [place] [phone] PCP - General Family Medicine 05/24/23 documented as of this encounter
--- OUTSIDE RECORDS SUMMARY | 2024-07-21 18:38 | XMS_ITS | Encounter Summary ---
Author Organization [facility] Address [address] [place] [address] Care Team Providers Care Medicine Worker Name Role Phone Unavailable Primary Care Provider Unavailabl e Encounter Details Date Type Department Care Team (Late st Contact Info) Description 04/15/2024 Lab Requisition [facility] Pathology & Laboratory Medicine - [facility] [address] [place] [address] Outr Resulting Lab, Provider Social History Tobacco [...] Procedure Name Priority Date/Time Associated Diagnosis Comments VARICELLA IGG ANTIBODY Routine 04/15/2024 10:25 EDT documented in this encounter Results * VARICELLA IGG ANTIBODY (04/15/2024 10:25 EDT) Varicella IgG Ab Positive See Note 04/16/2024 9:43 EDT [facility] Comment:Presence of detectab le Varicella Zoster virus IgG antibodies. Blood VENOUS BLOOD / Unknown 04/15/2024 10:25 EDT 04/15/2024 17:12 EDT us Provider Outr Resulting Lab IMMUNOLOGY AND SEROL OGY ORDERABLES Final Result [facility] [address] [place], [place] [id number] documented in this encounter Visit Diagnoses Not on filedocumented in this encounter
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
--- OUTSIDE RECORDS SUMMARY | 2024-07-21 18:38 | XMS_ITS | Encounter Summary ---
Author Organization [facility] [place] [address] Care Team Providers Care Modular Home Crew Member Name Role Phone Bere Ramos APRN Primary Care Provider Encounter Details Date Type Department Care Team (Latest Contact Info) Description 03/25/2024 Travel Social History Tobacco Use Types Packs/Day Years [...] on filedocumented in this encounter Care Teams Modular Home Crew Member Relationship Specialty Start Date End Date Bere Ramos APRN [address] [place] [phone] PCP - General Family Medicine 05/24/23 documented as of this encounter
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
[2024-07-21 19:28] LABS: Bilirubin Negative (Negative); Blood Negative (Negative); Clarity Clear (Clear); Glucose Negative (Negative); Ketones Negative (Negative); Leukocyte Esterase Negative (Negative); Nitrite Negative (Negative); Urobilinogen 0.2 mg/dL (Up to 0.2); pH 6.5 (5-8)
[2024-07-21] MEDS: Ketorolac 15 MG/ML VIAL IVP (19:36)
[2024-07-21 19:37] LABS: Abs Immature Grans 0.02 10^3/uL (0.0-0.06); Absolute Basophil Count 0.03 10^3/uL (0.0-0.2); Absolute Eosinophil Count 0.11 10^3/uL (0.0-0.7); Absolute Lymphocyte Count 1.44 10^3/uL (1.2-3.4); Absolute Monocyte Count 0.42 10^3/uL (0.1-0.8); Absolute Neutrophil Count 5.53 10^3/uL (1.2-6.7); Basophils % 0.4 %; Eosinophils % 1.5 %; HCT 43.3 % (36.0-46.0); HGB 14.4 g/dL (11.2-15.7); Immature Grans % 0.3 %; Lymphocytes % 19.1 %; MCH 29.8 pg (27.0-33.0); MCHC 33.3 % (32.0-36.0); MCV 90 fL (80-95); MPV 9.4 fL (8.0-11.0); Monocytes % 5.6 %; Neutrophils % 73.1 %; Platelet Count 309 10^3/uL (130-400); RBC 4.84 10^6/uL (3.93-5.22); RDW 13.5 % (11.7-14.6); RDW-SD 43.9 fL; WBC 7.55 10^3/uL (4.4-10.8)
[2024-07-21 19:59] LABS: ALT 22 U/L (14-59); AST 12 U/L (15-37); Albumin 3.8 g/dL (3.4-5.0); Alkaline Phosphatase 46 U/L (46-116); Anion Gap 5.2 mmol/L (3-11); BUN 8 mg/dL (7-18); Bilirubin, Total 0.63 mg/dL (0.2-1.0); CO2 27.8 mmol/L (21.0-32.0); CREATININE 0.8 mg/dL (0.55-1.02); Calcium 8.9 mg/dL (8.5-10.1); Chloride 105 mmol/L (98-107); Estimated GFR 99.71 (mL/min/1.73m2); Glucose 87 mg/dL (74-106); Lipase 36 U/L (<78); Magnesium 1.9 mg/dL (1.8-2.4); Potassium 3.6 mmol/L (3.5-5.1); Sodium 138 mmol/L (136-145); TSH (W/Ref FT4) 3.49 uIU/mL (0.36-3.74); Total Protein 8.1 g/dL (6.4-8.2)
--- NOTE | 2024-07-21 20:22 | DI.CT_ITS ---
Exam(s) CT ABDOMEN PELVIS W EXAM: CT ABDOMEN PELVIS W CLINICAL HISTORY: lower abdominal pain TECHNIQUE: Imaging Protocol: Axial computed tomography images with coronal and sagittal reformatted images were created and reviewed. CONTRAST MATERIAL: Intravenous: Omnipaque 350 Contrast volume:75 mL Oral: No COMPARISON: No exams were available for comparison FINDINGS: ABDOMEN: Lung Bases: No acute abnormality. Liver: Normal density. No measurable mass. Portal, Superior Mesenteric, and Splenic Veins: Unremarkable. Gallbladder and Biliary Tract: No radiodense calculus or dilation. Pancreas: Normal density, no abnormal calcifications or inflammatory process. Spleen: Normal. Adrenals: No masses seen. Kidneys: Normal size, contour and axis. No radiodense stones or obstructive uropathy. No masses seen. Abdominal Aorta: Abdominal portion non-dilated. Bowel: No obstruction or bowel wall thickening. Appendix is unremarkable. Stomach is incompletely dis tended limiting evaluation. Peritoneal Cavity: There is a small amount of fluid in the cul-de-sac which may be physiologic. No f ree air. Lymph Nodes: Within normal limits. Bones: Within normal limits for the patient's age. Soft Tissues: Unremarkable. PELVIS: Bladder: Symmetric distention, no gross wall thickening. Reproductive Organs: There is a 2.9 x 1.6 cm corpus luteal cyst on the left ovary. Reproductive orga ns are otherwise unremarkable. Lymph Nodes: Within normal limits. Bones: Within normal limits for the patient's age. IMPRESSION: 1. 2.9 x 1.6 cm left ovarian corpus luteal cyst/hemorrhagic cyst. Small amount of free fluid in the pelvis which is likely physiologic. 2. Normal appendix. 3. No evidence of biliary ductal dilatation, nephrolithiasis or obstructive uropathy. RADIATION DOSE DELIVERED: 297.14mGy.cm Total DLP DATA REPOSITORY: All CT scans at this facility are submitted to the National Radiology Data Registry (NRDR) Dose Index Registry (DIR) with the [employer] (ACR). RADIATION OPTIMIZATION: All CT scans at this facility use at least one of these dose optimization te chniques: automated exposure control; mA and/or kV adjustment per patient size (includes targeted exa ms where dose is matched to clinical indication); or iterative reconstruction.
[2024-07-21] MEDS: Omnipaque 350 MG/ML 100 ML BTL 75 ML IJ (20:23)
[2024-07-21] MEDS: Normal Saline - Diluent 50 ML VIAL IJ (20:23)
[2024-07-21 20:27] LABS: COVID-19 PCR Negative (Negative); Influenza A PCR Negative (Negative); Influenza B PCR Negative (Negative); RSV PCR Negative (Negative); Source Nasopharynx
[2024-07-21 20:39] VITALS: BP 112/59; PULSE 68; TEMP 37.8; O2SAT 100
--- NOTE | 2024-07-21 20:56 | DI.VRAD_ITS ---
PROCEDURE INFORMATION: Exam: CT Abdomen And Pelvis With Contrast Exam date and time: 07/21/2024 8:11 PM Age: 34 years old Clinical indication: Other: Lower abd pain TECHNIQUE: Imaging protocol: Computed tomography of the abdomen and pelvis with contrast. Contrast material: OMNIPAQUE 350; Contrast volume: 75 ml; Contrast route: INTRAVENOUS (IV); COMPARISON: No relevant prior studies available. FINDINGS: Lungs: Lung bases are clear. Liver: Homogeneous liver parenchyma. No suspicious mass. Gallbladder and biliary ducts: Normal. No calcified stones. No ductal dilation. Pancreas: Normal. No ductal dilation. Spleen: Normal. No splenomegaly. Adrenal glands: Normal. No mass. Kidneys and ureters: Symmetric enhancement. No hydronephrosis. Non-dilated ureters. No stones. Stomach and bowel: Unremarkable stomach. Nondilated small bowel. Negative for inflammatory changes around the colon. Appendix: Normal appendix. Intraperitoneal space: Mild pelvic free fluid. No free air. No abscess. Vasculature: No significant vascular calcifications. Negative for abdominal aortic aneurysm. No occlusion or stenosis in the superior mesenteric artery. No portal or mesenteric venous thrombosis. Lymph nodes: Unremarkable. No enlarged lymph nodes. Urinary bladder: Normal thin moreno. No stones. No gas. Reproductive: A collapsed cyst or corpus luteum in the left ovary measures 2.9 x 1.6 cm. There is a uniform enhancing rim. See axial image 67 series 8. Bones/joints: No compression fracture. 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 No pars defects are observed. Soft tissues: Unremarkable. IMPRESSION: Consider ruptured hemorrhagic cyst in the left ovary. Mild pelvic free fluid. Dictated and Authenticated by: Maverick Newman MD. Orderin Grayson Temple MD
[2024-07-21 21:17] VITALS: BP 110/63; PULSE 63; RESP 18; O2SAT 99
== END 2024-07-21 21:17 | disposition home or self-care (01) ==
PROVIDERS: Emergency Provider Emergency Medicine; PCP Nurse Practitioner
DX: R10.30 Lower abdominal pain, unspecified (principal); N83.202 Unspecified ovarian cyst, left side
CPT/HCPCS: 36415; 80053; 81025; 83690; 87637; 96374; 99285; 74177; 81003; 83735; 84443; 85025; 99284; J1885; J3490

== ENCOUNTER 2024-07-27 15:49 | Outpatient (CLI) | payer OTHER, SELFPAY ==
[2024-07-27 16:17] LABS: ESR 4 mm/hr (0-20)
[2024-07-27 17:10] LABS: TSH (W/Ref FT4) 2.23 uIU/mL (0.36-3.74); Vitamin B12 588 pg/mL (193-986); Vitamin D 25 Total 30.9 ng/mL (30-100)
[2024-07-27 17:21] LABS: C-Reactive Protein < 0.50 mg/dL (<or=0.5)
== END 2024-07-27 15:50 | disposition home or self-care (01) ==
LOC: LBO 15:53
PROVIDERS: PCP Nurse Practitioner; Visit Provider Nurse Practitioner
DX: R20.0 Anesthesia of skin (principal); M35.9 Systemic involvement of connective tissue, unspecified
CPT/HCPCS: 36415; 82306; 85652; 82607; 84443; 86140

== ENCOUNTER 2024-08-30 11:48 | Emergency (ER) | payer OTHER, SELFPAY ==
[2024-08-30 12:00] VITALS: BP 133/96; PULSE 93; RESP 18; TEMP 36.6; O2SAT 96
[2024-08-30 12:15] VITALS: BP 133/96; PULSE 93; RESP 18; TEMP 36.4; O2SAT 98
[2024-08-30 12:18] VITALS: RESP 18
--- NOTE | 2024-08-30 13:00 | DI.CT_ITS ---
Exam(s) CT HEAD WO EXAM: CT HEAD WO CLINICAL HISTORY: confusion. TECHNIQUE: Imaging Protocol: Axial computed tomography images with coronal and sagittal reformatted images were created and reviewed COMPARISON: No exams were available for comparison FINDINGS: There are no skull fractures. There is no fluid in the visualized paranasal sinuses. There is no evidence of intracranial hemorrhage, mass effect, or shift of midline structures. There are no extra-axial fluid collections. The ventricles are not enlarged or shifted and there is no blo od within the ventricular system nor within the basal cisterns. IMPRESSION: No acute intracranial findings on this noninfused CT scan of the brain. RADIATION DOSE DELIVERED: 831.65mGy.cm Total DLP DATA REPOSITORY: All CT scans at this facility are submitted to the National Radiology Data Registry (NRDR) Dose Index Registry (DIR) with the [employer] (ACR). RADIATION OPTIMIZATION: All CT scans at this facility use at least one of these dose optimization te chniques: automated exposure control; mA and/or kV adjustment per patient size (includes targeted exa ms where dose is matched to clinical indication); or iterative reconstruction.
[2024-08-30 13:55] LABS: COVID-19 PCR Negative (Negative); Influenza A PCR Positive (Negative); Influenza B PCR Negative (Negative); RSV PCR Negative (Negative)
[2024-08-30 13:56] LABS: Source Nasopharynx
[2024-08-30 14:05] LABS: Abs Immature Grans 0.02 10^3/uL (0.0-0.06); Absolute Basophil Count 0.03 10^3/uL (0.0-0.2); Absolute Eosinophil Count 0.07 10^3/uL (0.0-0.7); Absolute Lymphocyte Count 0.95 10^3/uL (1.2-3.4); Absolute Monocyte Count 0.29 10^3/uL (0.1-0.8); Absolute Neutrophil Count 2.42 10^3/uL (1.2-6.7); Basophils % 0.8 %; Eosinophils % 1.9 %; HCT 45.2 % (36.0-46.0); HGB 15.5 g/dL (11.2-15.7); Immature Grans % 0.5 %; Lymphocytes % 25.1 %; MCH 29.6 pg (27.0-33.0); MCHC 34.3 % (32.0-36.0); MCV 86 fL (80-95); Monocytes % 7.7 %; RBC 5.23 10^6/uL (3.93-5.22); RDW 13.2 % (11.7-14.6); RDW-SD 41.2 fL; WBC 3.78 10^3/uL (4.4-10.8)
--- NOTE | 2024-08-30 14:18 | DI.VRAD_ITS ---
PROCEDURE INFORMATION: Exam: CT Head Without Contrast Exam date and time: 08/30/2024 1:56 PM Age: 34 years old Clinical indication: Other: Confusion TECHNIQUE: Imaging protocol: Computed tomography of the head without contrast. COMPARISON: No relevant prior studies available. FINDINGS: Brain: Normal. No hemorrhage. Unremarkable white matter. No mass effect. Cerebral ventricles: No ventriculomegaly. Paranasal sinuses: Visualized sinuses are unremarkable. No fluid levels. Mastoid air cells: Visualized mastoid air cells are well aerated. Bones: Unremarkable. No acute fracture. Soft tissues: Unremarkable. IMPRESSION: No large territorial infarct or intracranial bleed. Dictated and Authenticated by: Carrillo Cooney MD. Orderin Herminia Keita MD
[2024-08-30 14:32] LABS: ALT 24 U/L (14-59); AST 22 U/L (15-37); Alkaline Phosphatase 53 U/L (46-116); Anion Gap 8.9 mmol/L (3-11); BUN 9 mg/dL (7-18); Bilirubin, Total 0.3 mg/dL (0.2-1.0); CO2 29.1 mmol/L (21.0-32.0); CREATININE 0.8 mg/dL (0.55-1.02); Calcium 8.5 mg/dL (8.5-10.1); Chloride 105 mmol/L (98-107); Creatine Kinase 149 U/L (26-192); Estimated GFR 99.71 (mL/min/1.73m2); Glucose 91 mg/dL (74-106); Sodium 143 mmol/L (136-145); Total Protein 8.2 g/dL (6.4-8.2)
[2024-08-30 14:41] LABS: Magnesium 1.9 mg/dL (1.8-2.4)
[2024-08-30 16:02] VITALS: BP 115/84; PULSE 75; RESP 16; TEMP 36.7; O2SAT 97
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
[2024-09-01 12:04] LABS: Lyme Ab w Rflx to Lyme Confirm Negative (Negative)
[2024-09-03 00:11] LABS: Anaplasma phagocytophilum Negative (Negative); B. miyamotoi PCR Negative (Negative); Babesia divergens/MO-1 Negative (Negative); Babesia duncani Negative (Negative); Babesia microti Negative (Negative); Ehrlichia chaffeensis Negative (Negative); Ehrlichia ewingii/canis Negative (Negative); Ehrlichia muris eauclairensis Negative (Negative)
== END 2024-08-30 16:03 | disposition home or self-care (01) ==
PROVIDERS: Emergency Provider Physician Assistant; PCP Nurse Practitioner
DX: J10.1 Influenza due to other identified influenza virus with other respiratory manifestations (principal); R41.0 Disorientation, unspecified
CPT/HCPCS: 80053; 82550; 87637; 87798; 99284; 70450; 83735; 85025; 86618; 99283

== ENCOUNTER 2025-01-25 01:27 | Outpatient (CLI) | payer OTHER, SELFPAY ==
--- NOTE | 2025-01-25 06:30 | DI.MRI_ITS ---
Exam(s) MR BRAIN WO/W EXAM: MR BRAIN WO/W CLINICAL HISTORY: Progressive aphasia,closed tbi,speech and language disorder,[id number] TECHNIQUE: Multiplanar multisequence MRI of the brain was performed. CONTRAST MATERIAL: IV Contrast: 10 mL of Dotarem contrast administered. COMPARISON: CT CT HEAD WO from 08/30/2024 FINDINGS: VENTRICLES AND EXTRA AXIAL SPACES: Normal in size and morphology for the patient's age. HEMORRHAGE: None. CEREBRAL PARENCHYMA: No focus of restricted diffusion to suggest acute infarct. No space-occupying lesion identified. MIDLINE SHIFT: None. BRAINSTEM/CEREBELLUM: Normal. CALVARIUM: Normal. ENHANCEMENT: No suspicious enhancement identified. VISUALIZED PARANASAL SINUSES/MASTOIDS: Clear. [place]: Normal flow void. PITUITARY GLAND: Unremarkable. OTHER FINDINGS: IMPRESSION: Unremarkable MRI of the brain. DATA REPOSITORY:
[2025-01-25] MEDS: Gadoterate meglumine 20 ML SYRINGE 10 ML IVP (09:40)
[2025-01-25] MEDS: Normal Saline Flush 10 ML SYR IVP (09:41)
== END 2025-01-25 01:47 ==
PROVIDERS: PCP Nurse Practitioner; Visit Provider Family Medicine
DX: S06.9XAA Unspecified intracranial injury with loss of consciousness status unknown, initial encounter (principal); F80.9 Developmental disorder of speech and language, unspecified; X58.XXXA Exposure to other specified factors, initial encounter
CPT/HCPCS: 70553